=== PATIENT | female | born 1950 | race Caucasian/White ===

== ENCOUNTER 2016-12-26 17:42 | Emergency (ER) | payer OTHER, BC ==
[2016-12-26 17:51] VITALS: BP 132/79; PULSE 80; TEMP 98.3; BMI 28.7
[2016-12-26 18:18] LABS: BASOPHIL 4.3 % (0-2.0); EOSINOPHIL 1.2 % (0-4.5); MCH 32.6 pg (25.7-33.7); MCHC 34.6 g/dl (32.0-36.0); MEAN CELL VOLUME 94.3 fl (80-96); MEAN PLT VOLUME 7.3 fl (7.5-11.1); NEUTROPHILS 74.6 % (42.8-82.8); PLATELET COUNT 542 K/MM3 (134-434); RDW 13.1 % (11.6-15.6); WHITE BLOOD COUNT 5.9 K/mm3 (4.0-10.0)
[2016-12-26 18:41] LABS: ALBUMIN 4.3 g/dl (3.5-5.0); ALK PHOS 44 U/L (32-92); ANION GAP 2 (8-16); BILIRUBIN,TOTAL 0.4 mg/dl (0.2-1.0); CALCIUM 9.5 mg/dl (8.4-10.2); CO2 29 mmol/L (22-28); CREATININE 0.7 mg/dl (0.6-1.3); GLUCOSE,RANDOM 91 mg/dl (74-106); SGOT/AST 25 U/L (10-42); SGPT/ALT 27 U/L (10-40); TOT PROT 6.3 g/dl (6.4-8.3)
--- NOTE | 2016-12-26 18:47 | PDOC ---
History of Present Illness - General History Source: Patient Exam Limitations: No Limitations <Jermain Bates - Last Filed: 12/26/16 18:48> - History of Present Illness Initial Comments: 12/26/16 19:01 The patient is a 66-year-old female with history of polycythemia ,AML in remission presents to the emergency department for itching. Patient reports that when she had AML, she was diagnosed when she had severe itchiness. She was concerning for reoccurrence and came to the ED. Patient denies fever, chills. No other complaints <Alfredo See - Last Filed: 12/26/16 19:04> - General Chief Complaint: Itching Stated Complaint: INTERNAL ITCHING ON BODY Time Seen by Provider: 12/26/16 17:45 Past History - Past Medical History Anemia: No Asthma: No Cancer: Yes (Leukemia 9 yrs remission) Cardiac Disorders: No CVA: No COPD: No CHF: No Dementia: No Diabetes: No GI Disorders: No Disorders: No HTN: No Hypercholesterolemia: No Liver Disease: No Seizures: No Thyroid Disease: Yes (HYPO) - Surgical History Abdominal Surgery: No Appendectomy: No Cardiac Surgery: No Cholecystectomy: Yes Lung Surgery: No Neurologic Surgery: No Orthopedic Surgery: Yes (Left Knee Replacement) - Psycho/Social/Smoking Cessation Hx Anxiety: No Suicidal Ideation: No Smoking History: Never smoked Information on smoking cessation initiated: No Hx Alcohol Use: No Drug/Substance Use Hx: No Substance Use Type: None Hx Substance Use Treatment: No <Jermain Bates - Last Filed: 12/26/16 18:48> <Alfredo See - Last Filed: 12/26/16 19:04> - Past Medical History Allergies/Adverse Reactions: Allergies Allergy/AdvReac Type Severity Reaction Status Date / Time latex AdvReac Hives Verified 12/26/16 17:45 Home Medications: Ambulatory Orders Aspirin [ASA -] 81 mg PO ASDIR 06/03/14 Estrogens,Conjugated [Premarin] 0.3 mg PO DAILY 06/03/14 Levothyroxine [Synthroid -] 37 mcg PO DAILY 06/03/14 Ruxolitinib Phosphate [Jakafi] 10 mg PO BID 06/03/14 Calcium Carb/Vitamin D3/Vit K1 [Calcium + D Soft Chewable Tab] 1 each PO DAILY 12/26/16 Meloxicam 7.5 mg PO ASDIR 12/26/16 Multivitamin with Minerals [Icaps Plus] 1 each PO DAILY 12/26/16 Review of Systems - Review of Systems Able to Perform ROS?: Yes Comments:: 12/26/16 19:02 GENERAL/CONSTITUTIONAL: No fever or chills. No weakness. HEAD, EYES, EARS, NOSE AND THROAT: No change in vision. No ear pain or discharge. No sore throat. CARDIOVASCULAR: No chest pain or shortness of breath. RESPIRATORY: No cough, wheezing, or hemoptysis. GASTROINTESTINAL: No nausea, vomiting, diarrhea or constipation. GENITOURINARY: No dysuria, frequency, or change in urination. MUSCULOSKELETAL: No joint or muscle swelling or pain. No neck or back pain. SKIN: Yes: Itchiness NEUROLOGIC: No headache, vertigo, loss of consciousness, or change in strength/ sensation. ENDOCRINE: No increased thirst. No abnormal weight change. HEMATOLOGIC/LYMPHATIC: No anemia, easy bleeding, or history of blood clots. ALLERGIC/IMMUNOLOGIC: No hives or skin allergy. Is the patient limited Croatian proficient: No <Alfredo See - Last Filed: 12/26/16 19:04> *Physical Exam - Vital Signs Last Vital Signs Temp Pulse Resp BP Pulse Ox 98.3 F 80 18 132/79 99 12/26/16 17:44 12/26/16 17:44 12/26/16 17:44 12/26/16 17:44 12/26/16 17:44 <Jermain Bates - Last Filed: 12/26/16 18:48> - Vital Signs Last Vital Signs Temp Pulse Resp BP Pulse Ox 98.3 F 80 18 132/79 99 12/26/16 17:44 12/26/16 17:44 12/26/16 17:44 12/26/16 17:44 12/26/16 17:44 - Physical Exam Comments: 12/26/16 19:02 GENERAL: Awake, alert, and fully oriented, in no acute distress HEAD: No signs of trauma EYES: PERRLA, EOMI, sclera anicteric, conjunctiva clear ENT: Auricles normal inspection, hearing grossly normal, nares patent, oropharynx clear without exudates. Moist mucosa NECK: Normal ROM, supple, no lymphadenopathy, JVD, or masses LUNGS: Breath sounds equal, clear to auscultation bilaterally. No wheezes, and no crackles HEART: Regular rate and rhythm, normal S1 and S2, no murmurs, rubs or gallops ABDOMEN: Soft, nontender, normoactive bowel sounds. No guarding, no rebound. No masses EXTREMITIES: Normal range of motion, no edema. No clubbing or cyanosis. No cords, erythema, or tenderness NEUROLOGICAL: Cranial nerves II through XII grossly intact. Normal speech, normal gait SKIN: Warm, Dry, normal turgor, no rashes or lesions noted. <Alfredo See - Last Filed: 12/26/16 19:04> ED Treatment Course - LABORATORY CBC & Chemistry Diagram: 12/26/16 17:45 12/26/16 17:45 - ADDITIONAL ORDERS Additional order review: Laboratory Results 12/26/16 17:45 Sodium 137 Potassium 4.3 Chloride 106 Carbon Dioxide 29 H Anion Gap 2 L BUN 25 H Creatinine 0.7 Creat Clearance w eGFR > 60 Random Glucose 91 Calcium 9.5 Total Bilirubin 0.4 AST 25 ALT 27 Alkaline Phosphatase 44 Total Protein 6.3 L Albumin 4.3 12/26/16 17:45 RBC 3.97 MCV 94.3 MCHC 34.6 RDW 13.1 MPV 7.3 L Neutrophils % 74.6 Lymphocytes % 17.3 Monocytes % 2.6 L Eosinophils % 1.2 Basophils % 4.3 H <Jermain Bates - Last Filed: 12/26/16 18:48> - LABORATORY CBC & Chemistry Diagram: 12/26/16 17:45 12/26/16 17:45 - ADDITIONAL ORDERS Additional order review: Laboratory Results 12/26/16 17:45 Sodium 137 Potassium 4.3 Chloride 106 Carbon Dioxide 29 H Anion Gap 2 L BUN 25 H Creatinine 0.7 Creat Clearance w eGFR > 60 Random Glucose 91 Calcium 9.5 Total Bilirubin 0.4 AST 25 ALT 27 Alkaline Phosphatase 44 Total Protein 6.3 L Albumin 4.3 12/26/16 17:45 RBC 3.97 MCV 94.3 MCHC 34.6 RDW 13.1 MPV 7.3 L Neutrophils % 74.6 Lymphocytes % 17.3 Monocytes % 2.6 L Eosinophils % 1.2 Basophils % 4.3 H <Alfredo See - Last Filed: 12/26/16 19:04> Medical Decision Making - Medical Decision Making 12/26/16 18:51 A portion of this note was documented by scribe services under my direction. I have reviewed the details of the note, within reason, and agree with the documentation with the following case summary and management plan written by me. Patient treated in the ED. Nursing notes are reviewed and incorporated into the medical decision-making. Vital signs reviewed. Peripheral IV access obtained by the nurse, laboratory studies are drawn and sent, reviewed and interpreted by myself. Vital Signs Temp Pulse Resp BP Pulse Ox 98.3 F 80 18 132/79 99 12/26/16 17:44 12/26/16 17:44 12/26/16 17:44 12/26/16 17:44 12/26/16 17:44 66-year-old female with history of polycythemia ,AML in remission presents to the emergency department for itching. Patient reports that when she had AML, she was diagnosed when she had severe itchiness. She was concerning for reoccurrence and came to the ED. I had discussed the case with DR. Conteh, her cotton baler. Will draw basic labs and send a copy of it with her for her office visit tomorrow morning. CBC, BMP 12/26/16 17:45 12/26/16 17:45 Labs reviewed. Results sent over to DR. Conteh and a copy give to the patient. Pt declines benadryl at this time. Will discharge patient with hematology follow up tomorrow. I discussed the physical exam findings, ancillary test results and final diagnoses with the patient. I answered all of the patient's questions. The patient was satisfied with the care received and felt comfortable with the discharge plan and treatment plan. The patient will call their primary care physician within 24 hours to arrange follow-up and will return to the Emergency Department with any new, persistant or worsening symptoms. <Jermain Bates - Last Filed: 12/26/16 18:48> *DC/Admit/Observation/Transfer - Discharge Dispostion Admit: No <Jermain Bates - Last Filed: 12/26/16 18:48> - Attestations Scribe Attestion: 12/26/16 19:03 Documentation prepared by Alfredo See, acting as medical billing instructor for Jermain Bates MD <Alfredo See - Last Filed: 12/26/16 19:04> Diagnosis at time of Disposition: Itching - Discharge Dispostion Disposition: HOME Condition at time of disposition: Stable - Referrals Referrals: Basim Conteh MD [Staff Physician] - - Patient Instructions Printed Discharge Instructions: DI for Itching Additional Instructions: Please see your cotton baler DR. Conteh tomorrow. Attached are your results.
== END 2016-12-26 18:50 | disposition home or self-care (01) ==
LOC: FER 17:42
DX: L29.9 Pruritus, unspecified (principal); C92.Z1 Other myeloid leukemia, in remission; D75.1 Secondary polycythemia; E03.9 Hypothyroidism, unspecified; Z96.652 Presence of left artificial knee joint; Z79.82 Long term (current) use of aspirin
CPT/HCPCS: 36415; 80053; 85025; 99282-25

== ENCOUNTER 2018-01-18 08:10 | Emergency (ER) | payer OTHER, BC ==
[2018-01-18 08:17] VITALS: TEMP 97.6; BMI 29.6
[2018-01-18] MEDS ORDERED: RANITIDINE HCL 150 MG TABLET (FP) PO ONE (08:46)
[2018-01-18] MEDS ORDERED: MAG HYDROX/AL HYDROX/SIMETH 30 ML UNIT-DOSE CUP PO ONE (08:46)
[2018-01-18] MEDS ORDERED: RANITIDINE HCL 150 MG TABLET (FP) ONE (08:54)
[2018-01-18] MEDS ORDERED: MAG HYDROX/AL HYDROX/SIMETH 30 ML UNIT-DOSE CUP ONE (08:55)
--- NOTE | 2018-01-18 09:06 | PDOC ---
History of Present Illness - General Chief Complaint: Chest Pain Stated Complaint: CHEST DISCOMFORT/EPIGASTRIC DISCOMFORT Time Seen by Provider: 01/18/18 08:13 History Source: Patient Exam Limitations: No Limitations - History of Present Illness Initial Comments: 01/18/18 09:00 67-year-old female with history of polycythemia vera controlled on medications, history of AML in remission and no other significant medical history presents with epigastric discomfort intermittently for 1-2 days. Patient has been moving apartments, developed bilateral shoulder tendinitis and began evaluation about 3 weeks ago in urgent care centers and with orthopedics. In summary, she was prescribed about 2 weeks of prednisone and has been taking meloxicam daily for the last week following completion of the prednisone course. In this setting, patient presents with intermittent epigastric burning on and off since yesterday , mild and gradual in onset. She awoke this morning at 6 AM with another episode and presents for evaluation to make sure her heart is okay. No associated symptoms of heartburn or reflux, no nausea or vomiting, not associated with by mouth intake, no bloody bowel movements. The pain is also not exertional, she has unlimited exercise tolerance at baseline, and denies any associated diaphoresis or shortness of breath or palpitations. No recent PE risk factors or symptoms of DVT, no relevant family history. Denies smoking or drinking alcohol, had an endoscopy about 2 years ago that was normal, has had a stress test within the last 5 years that was also normal. Patient presents now with no real pain but only "butterflies in her stomach" and feels better. Past History - Past Medical History Allergies/Adverse Reactions: Allergies Allergy/AdvReac Type Severity Reaction Status Date / Time latex AdvReac Hives Verified 01/18/18 08:12 Home Medications: Ambulatory Orders Aspirin [ASA -] 81 mg PO ASDIR 06/03/14 Estrogens,Conjugated [Premarin] 0.3 mg PO DAILY 06/03/14 Levothyroxine [Synthroid -] 37 mcg PO DAILY 06/03/14 Ruxolitinib Phosphate [Jakafi] 10 mg PO BID 06/03/14 Calcium Carb/Vitamin D3/Vit K1 [Calcium + D Soft Chewable Tab] 1 each PO DAILY 12/26/16 Meloxicam 7.5 mg PO ASDIR 12/26/16 Multivitamin with Minerals [Icaps Plus] 1 each PO DAILY 12/26/16 Anemia: No Asthma: No Cancer: Yes (Leukemia 9 yrs remission) Cardiac Disorders: No CVA: No COPD: No CHF: No Dementia: No Diabetes: No GI Disorders: No Disorders: No HTN: No Hypercholesterolemia: No Liver Disease: No Seizures: No Thyroid Disease: Yes (HYPO) Other medical history: POLYCYTHEMIA,AML - Surgical History Abdominal Surgery: No Appendectomy: No Cardiac Surgery: No Cholecystectomy: Yes Lung Surgery: No Neurologic Surgery: No Orthopedic Surgery: Yes (Left Knee Replacement) - Suicide/Smoking/Psychosocial Hx Smoking History: Never smoked Hx Alcohol Use: No Drug/Substance Use Hx: No Substance Use Type: None Hx Substance Use Treatment: No Review of Systems - Review of Systems Constitutional: No: Chills, Fever, Night Sweats Respiratory: No: Cough, Shortness of Breath, SOB with Exertion Cardiac (ROS): No: Chest Pain, Edema, Palpitations, Syncope ABD/GI: Yes: See HPI. No: Blood Streaked Bowels, Diarrhea, Nausea, Vomiting : No: Burning, Dysuria Musculoskeletal: Yes: Joint Pain (b/l shoulder tendinopathy for 2-3 weeks). No : Muscle Pain Neurological: No: Headache All Other Systems: Reviewed and Negative *Physical Exam - Vital Signs Last Vital Signs Temp Pulse Resp BP Pulse Ox 97.6 F 71 16 150/72 100 01/18/18 08:11 01/18/18 08:11 01/18/18 08:11 01/18/18 08:11 01/18/18 08:11 - Physical Exam Comments: 01/18/18 09:05 Blood pressure now 97/60, initially 150 systolic. GENERAL: The patient is awake, alert, and fully oriented, in no acute distress. Very well-appearing and speaking full sentences HEAD: Normal with no signs of trauma. EYES: PERRL, EOMI, sclera anicteric, conjunctiva clear with no pallor. ENT: oropharynx clear. Moist mucous membranes. NECK: Normal range of motion, supple without lymphadenopathy, JVD, or masses. LUNGS: Breath sounds equal, clear to auscultation bilaterally. No wheeze/ crackles. HEART: Regular rate and rhythm, normal S1 and S2 without murmur or rub. ABDOMEN: Soft/nondistended. BS wnl. Epigastric discomfort to palpation without guarding or rebound. No right upper quadrant tenderness. No palpable masses. No hepatosplenomegaly. EXTREMITIES: Normal range of motion with slight discomfort on abduction of L shoulder, no edema. 2+ distal pulses. No cords, erythema, or tenderness. NEUROLOGICAL: Cranial nerves II through XII grossly intact. Normal speech, normal gait. PSYCH: Normal mood, normal affect. SKIN: Warm, Dry, no rashes or lesions noted. Heart Score/ECG Review - History History: Slightly suspicious - Electrocardiogram EKG: Normal - Age Age: >/= 65 - Risk Factors Based on the list above the patient has:: No risk factors known - Troponin Troponin: </= normal limit - Score Heart Score - Total: 2 #1 ECG reviewed & interpreted by me at: 08:15 General ECG Interpretation: Sinus Rhythm, Normal Rate (62), Normal Intervals ( qtc 424), No acute ischemic changes #2 ECG reviewed & interpreted by me at: 11:50 General ECG Interpretation: Sinus Rhythm, Normal Rate (60), Normal Intervals ( qtc 414), No acute ischemic changes Compared to previous ECG there are: No significant change ED Treatment Course - LABORATORY CBC & Chemistry Diagram: 01/18/18 09:12 01/18/18 09:12 - RADIOLOGY Radiology Studies Ordered: Category Date Time Status CHEST PA & LAT [RAD] Stat Radiology 01/18/18 08:46 Ordered Medical Decision Making - Medical Decision Making 01/18/18 09:07 This is a 67-year-old female who presents with epigastric earning intermittently for 2 days in the setting of 2-3 weeks of gastric irritants of prednisone and meloxicam. She has discomfort in the epigastric region without peritoneal findings or evidence of bleeding. Her presentation is atypical for cardiac etiology given the history, relatively low risk factors (heart score of 2 only based on age), and exam. Lower suspicion for biliary or pancreatic etiology. Abdominal and chest pain workup including lipase and troponin. We'll check troponin 2 given overall low risk and low clinical suspicion Chest x-ray, EKG Patient already took 162 mg of aspirin at home. We'll give Zantac and Maalox for presumed dyspepsia. Reassess, disposition in conjunction with Dr. Conteh, her primary physician. 01/18/18 10:43 First troponin negative, other labs are within normal limits except for white blood cell count of 13. Lipase pending. Chest x-ray normal. Feels much better after Zantac and Maalox, awaiting second troponin around 12 PM. 01/18/18 12:37 A second EKG normal, second troponin negative. Patient feels well, is asymptomatic. Discussed with Dr. Conteh, agrees patient can be discharged on Pepcid with diet precautions and follow up with GI and for outpatient stress test. Patient agrees , understands return criteria. *DC/Admit/Observation/Transfer Diagnosis at time of Disposition: Dyspepsia, Epigastric abdominal pain - Discharge Dispostion Disposition: HOME Condition at time of disposition: Improved - Referrals Referrals: Basim Conteh MD [Staff Physician] - - Patient Instructions Printed Discharge Instructions: DI for Atypical Chest Pain, DI for Gastritis Additional Instructions: Activity as tolerated. Stay hydrated. Blood tests, an EKG, and a chest x-ray showed no acute abnormalities. Your symptoms are likely due to stomach irritation/inflammation which could have been caused by the steroids and anti-inflammatories. Recommend taking Pepcid 20 mg twice daily for 10 days, and modifying diet to avoid dairy, spicy or fatty food, caffeine and alcohol. Continue your medications as previously prescribed by your physician but try to reduce the amount of meloxicam if possible. You should follow up with your primary doctor as soon as possible regarding today's emergency department visit. You should also see a GI specialist if symptoms persist, and I recommend you have an outpatient stress test. Return to the emergency department for any new or concerning symptoms, particularly persistent or worsening pain, bloody vomit or stool, chest pain or difficulty breathing, fevers or chills or cough. - Post Discharge Activity
[2018-01-18 09:51] LABS: ALBUMIN 3.9 g/dl (3.5-5.0); ALK PHOS 62 U/L (32-92); ANION GAP 5 (8-16); BILIRUBIN,TOTAL 1.2 mg/dl (0.2-1.0); BLOOD UREA NITROGEN 26 mg/dl (7-18); CALCIUM 9.1 mg/dl (8.4-10.2); CHLORIDE 103 mmol/L (98-107); CO2 28 mmol/L (22-28); CREATININE 0.8 mg/dl (0.6-1.3); GLUCOSE,RANDOM 91 mg/dl (74-106); MAGNESIUM 2.2 mg/dL (1.8-2.4); POTASSIUM 4.2 mmol/L (3.5-5.1); SGOT/AST 21 U/L (10-42); SGPT/ALT 33 U/L (10-40); SODIUM 136 mmol/L (136-145); TOT PROT 6.4 g/dl (6.4-8.3)
[2018-01-18 10:14] LABS: BASO % 0.8 % (0-2.0); EOS % 1.1 % (0-4.5); HEMOGLOBIN 13.9 GM/dl (10.7-15.3); LYMPH % 8.9 % (8-40); MCH 30.8 pg (25.7-33.7); MCHC 32.2 g/dl (32.0-36.0); MEAN CELL VOLUME 95.5 fl (80-96); MEAN PLT VOLUME 7.5 fl (7.5-11.1); NEUT % 86.2 % (42.8-82.8); PLATELET COUNT 470 K/MM3 (134-434); RBC 4.51 M/mm3 (3.60-5.2); RDW 14.8 % (11.6-15.6)
[2018-01-18 10:45] LABS: LIPASE 150 U/L (73-393)
[2018-01-18 12:42] VITALS: BP 137/76; PULSE 76
--- NOTE | 2018-01-18 15:57 | EKG ---
Test Reason : Blood Pressure : / mmHG Vent. Rate : 060 BPM Atrial Rate : 060 BPM P-R Int : 170 ms QRS Dur : 074 ms QT Int : 414 ms P-R-T Axes : 034 -19 033 degrees QTc Int : 414 ms NORMAL SINUS RHYTHM NORMAL ECG WHEN COMPARED WITH ECG OF 18-JAN-2018 08:15, NO SIGNIFICANT CHANGE WAS FOUND Confirmed by ROSELINE ORDONEZ MD ([id number]) on 01/18/2018 3:56:55 PM Referred By: ALFRED HAMEED Confirmed By:ROSELINE ORDONEZ MD
--- NOTE | 2018-01-19 09:32 | EKG ---
Test Reason : Blood Pressure : / mmHG Vent. Rate : 062 BPM Atrial Rate : 062 BPM P-R Int : 168 ms QRS Dur : 082 ms QT Int : 418 ms P-R-T Axes : 037 -24 027 degrees QTc Int : 424 ms NORMAL SINUS RHYTHM LEFTWARD AXIS NO PREVIOUS ECGS AVAILABLE Confirmed by RAFFI NUNEZ MD ([id number]) on 01/19/2018 9:31:54 AM Referred By: ALFRED HAMEED Confirmed By:RAFFI NUNEZ MD
== END 2018-01-18 12:45 | disposition home or self-care (01) ==
LOC: FER 08:10
DX: R10.13 Epigastric pain (principal); E03.9 Hypothyroidism, unspecified; Z96.652 Presence of left artificial knee joint
CPT/HCPCS: 36415; 71046-TC-FY; 80053; 82550; 83690; 83735; 84484; 85025; 93005; 99283-25